=== PATIENT | female | born 1965 | race Caucasian/White ===

== ENCOUNTER 2019-06-27 18:19 | Emergency (ER) | payer OTHER ==
[~2019-06-27] VITALS: Ht 170.2 cm; Wt 140.6 kg
[2019-06-27 19:02] LABS: ABSOLUTE NEUTROPHILS 5.2 thou/uL (1.4-8.2); BASOPHILS 0.9 % (0.0-2.0); EOSINOPHILS 1.1 % (0.0-3.0); HEMATOCRIT 41.9 % (37.0-47.0); LYMPHOCYTES 31.6 % (24.0-44.0); MCH 28.2 pg (26.0-34.0); MCHC 33.5 g/dL (28.0-37.0); MCV 84.1 fL (80.0-100.0); MONOCYTES 7.2 % (1.0-8.0); PLATELET COUNT 257 thou/uL (150-400); POLYS 59.2 % (36.0-66.0); RBC 4.98 mil/uL (4.20-5.00); RDW 15.3 % (10.5-14.5); WBC 8.8 thou/uL (4.0-11.0)
[2019-06-27 19:16] LABS: APTT 29.2 Seconds (24.5-32.8); PROTIME 9.7 Seconds (9.3-11.4)
[2019-06-27 19:20] LABS: ANION GAP 8 mmol/L (7-16); BUN 19 mg/dL (7-18); CALCIUM 9.3 mg/dL (8.5-10.1); CHLORIDE 104 mmol/L (98-107); CO2 29 mmol/L (21-32); CREATININE 0.8 mg/dL (0.6-1.0); GLUCOSE 138 mg/dL (74-106); POTASSIUM 4.4 mmol/L (3.5-5.1); SODIUM 141 mmol/L (136-145)
[2019-06-27 19:25] LABS: ALBUMIN 3.7 g/dL (3.4-5.0); MAGNESIUM 1.8 mg/dL (1.8-2.4); SGOT 16 U/L (15-37); SGPT 21 U/L (30-65); TOTAL BILIRUBIN 0.1 mg/dL (<0.1-1.0); TOTAL PROTEIN 7.2 g/dL (6.4-8.2); TROPONIN-I <0.06 ng/mL (<0.06)
[2019-06-27] MEDS ORDERED: TRAMADOL 50 MG50 MG PO (21:46)
[2019-06-27] MEDS ORDERED: NAPROSYN500 MG PO (21:46)
[2019-06-27 22:07] VITALS: BP 119/69
--- NOTE | 2019-06-28 09:42 | EKG ---
[facility] [place] [address] ELECTROCARDIOGRAM REPORT Name: RAI LYLE Room #: DEP [facility]#: [id number] Admission: 06/27/19 Attend Phys: Discharge: 06/27/19 Date of : 63 Report #: [id number] THIS REPORT FOR: cc: FAM - Family physician unknown FAM - Family physician unknown Ranjan Solorzano MD ~ THIS REPORT FOR: //name// [facility] ED Test Date: 2019-06-27 Test Time: 18:23:22 Pat Name: RAI LYLE Department: Room: Gender: F [employer] 1965 Requested By: Frankie Ribera Order Number: [id number] MD: Ranjan Solorzano Measurements Intervals [place] Rate: 83 P: 43 TX: 159 QRS: -18 QRSD: 109 T: 48 QT: 385 QTc: 453 Interpretive Statements Sinus rhythm Probable left atrial enlargement Borderline left axis deviation RSR' in V1 or V2, probably normal variant No previous ECG available for comparison Electronically Signed On 06-28-2019 9:41:05 CDT by Ranjan Solorzano [email or web address] <ELECTRONICALLY SIGNED> By: Ranjan Solorzano MD 06/28/19 0941 [id number] Ranjan Solorzano MD /MARSHALL
== END 2019-06-27 22:09 | disposition home or self-care (01) ==
LOC: ER 18:19
PROVIDERS: Emergency Medicine
DX: R09.1 Pleurisy (principal); E66.01 Morbid (severe) obesity due to excess calories